=== PATIENT | female | born 1940 | race Asian ===

== ENCOUNTER 2025-03-23 03:13 | Emergency (ER) | payer OTHER, MEDICAID ==
[~2025-03-23] VITALS: Ht 157.5 cm; Wt 54.0 kg
[2025-03-23] MEDS: METHYLPREDNISOLONE SOD SUCC 125MG/2ML (ACT-O-VIAL) IV ONE (04:10)
[2025-03-23] MEDS: FUROSEMIDE 40MG/4ML VIAL IVP ONE (04:10)
[2025-03-23 04:19] VITALS: PULSE 96; RESP 20; O2SAT 99
[2025-03-23] MEDS: IPRATROPIUM BROMIDE (0.02%) 0.5MG/2.5ML NEB HHN ONE (04:19)
[2025-03-23] MEDS: ALBUTEROL (0.083%) 2.5MG/3ML NEB HHN ONE (04:19)
[2025-03-23 04:48] LABS: BASOPHILS % 0.6 % (0.0-2.0); EOSINOPHILS % 1.7 % (0.0-5.0); HEMATOCRIT. 42.1 % (36.0-48.0); HEMOGLOBIN. 13.8 g/dL (12.0-16.0); LYMPHOCYTES % 12.0 % (20.0-50.0); MEAN PLATELET VOLUME 7.6 fl (7.4-10.4); MONOCYTES % 7.6 % (2.0-8.0); NEUTROPHILS % 78.1 % (40.0-76.0); PLATELET 367 x1000/uL (130-400); RED BLOOD CELL COUNT 4.28 mill/uL (4.2-5.4); RED CELL DISTRIBUTION WIDTH 17.8 % (11.6-14.6)
[2025-03-23 04:59] LABS: CREATININE 3.3 mg/dL (0.6-1.0)
[2025-03-23 05:04] LABS: TROPONIN I HIGH SENSITIVITY 96 ng/L (3.0-34)
[2025-03-23 05:16] LABS: UREA NITROGEN BLOOD 72 mg/dL (9-23)
[2025-03-23] MEDS: CEFTRIAXONE 1GM/50ML 50 ML IV ONE (06:00)
[2025-03-23 06:04] VITALS: TEMP 36.4; O2SAT 99
[2025-03-23] MEDS: AZITHROMYCIN 500MG/250ML 250 ML IV ONE (06:28)
[2025-03-23 07:10] VITALS: BP 86/56; PULSE 102; RESP 16; TEMP 97.52
== END 2025-03-23 09:15 ==
LOC: ER 03:13 → EDBEDREQ 05:16 → EDBEDREQTM 05:16 → ENRESERV 07:21 → ER 09:15 → CMPBEDREQ 10:21
DX: J96.91 Respiratory failure, unspecified with hypoxia (principal); I48.91 Unspecified atrial fibrillation; N18.9 Chronic kidney disease, unspecified; E11.22 Type 2 diabetes mellitus with diabetic chronic kidney disease
CPT/HCPCS: 99291; 92950; 96365; 96375; 71045; 96367; 80048; 82962; 83880; 83605; 85025; 87040; 84484; 36415; 94640; 93005; 94664; J2919; J0456; J0696; J1938